=== PATIENT | male | born 1945 | race Caucasian/White ===

== ENCOUNTER → 2020-08-16 10:45 | Outpatient (CLI) | payer OTHER | END | disposition home or self-care (01) | LOC: D.MRI 10:45 | PROVIDERS: ATTEND Psychiatry & Neurology Neurology | DX: M54.5 Low back pain (principal) ==

== ENCOUNTER → 2020-09-23 09:08 | Outpatient (CLI) | payer OTHER | END | disposition home or self-care (01) | LOC: D.MRI 09:00 | PROVIDERS: ATTEND Clinical Nurse Specialist Family Health | DX: M25.551 Pain in right hip (principal) ==